=== PATIENT | male | born 1985 ===

== ENCOUNTER 2018-02-11 13:40 | Emergency (ER) | payer OTHER ==
[2018-02-11 14:00] VITALS: BP 154/95
--- NOTE | 2018-02-11 14:32 | UC ---
Hand/Wrist HPI - HPI Summary HPI Summary: hit radial side of left hand on a door this morning while at work---moveing left thumb causing pain - History Of Current Complaint Chief Complaint: UCUpperExtremity Stated Complaint: WRIST INJURY Time Seen by Provider: 02/11/18 14:31 Hx Obtained From: Patient ?: No Onset/Duration: Lasting Hours Pain Intensity: 5 Pain Scale Used: 0-10 Numeric Character Of Pain: Aching, Throbbing Alleviating Factor(s): Nothing Associated Signs And Symptoms: Positive: Negative Related History: Dominant Hand Left - Allergies/Home Medications Allergies/Adverse Reactions: Allergies Allergy/AdvReac Type Severity Reaction Status Date / Time No Known Allergies Allergy Verified 02/11/18 14:00 Home Medications: Home Medications NK [No Home Medications Reported] 02/11/18 [History Confirmed 02/11/18] PMH/Surg Hx/FS Hx/Imm Hx Previously Healthy: Yes - Surgical History Surgical History: None - Family History Known Family History: Positive: None - Social History Occupation: Employed Full-time Lives: With Family Alcohol Use: None Substance Use Type: None Smoking Status (MU): Current Some Day Smoker Type: Cigarettes Amount Used/How Often: 1/2 ppd Review of Systems Constitutional: Negative Skin: Negative Eyes: Negative ENT: Negative Respiratory: Negative Cardiovascular: Negative Gastrointestinal: Negative Genitourinary: Negative Motor: Negative Neurovascular: Negative Musculoskeletal: Arthralgia - radial aspect of left wrist and left thumb tender after pushing left hand into a locked door Neurological: Negative Psychological: Negative Is Patient Immunocompromised?: No All Other Systems Reviewed And Are Negative: Yes Physical Exam Triage Information Reviewed: Yes Appearance: Well-Appearing, No Pain Distress, Well-Nourished Vital Signs: Initial Vital Signs Temp 98 F 02/11/18 13:56 Pulse 85 02/11/18 13:56 Resp 18 02/11/18 13:56 BP 154/95 02/11/18 13:56 Pulse Ox 98 02/11/18 13:56 Vital Signs Reviewed: Yes Eye Exam: Normal Eyes: Positive: Conjunctiva Clear ENT Exam: Normal ENT: Positive: Normal ENT inspection, Hearing grossly normal. Negative: Trismus , Muffled voice, Hoarse voice, Sinus tenderness Dental Exam: Normal Neck exam: Normal Neck: Positive: Supple, Nontender Respiratory Exam: Normal Respiratory: Positive: Chest non-tender, No respiratory distress, No accessory muscle use Cardiovascular Exam: Normal Cardiovascular: Positive: RRR, Pulses Normal, Brisk Capillary Refill Musculoskeletal: Positive: Strength Intact, No Edema, ROM Limited @ - left thumb limited by pain Neurological Exam: Normal Neurological: Positive: Alert, Muscle Tone Normal, Fatigued Psychological Exam: Normal Skin Exam: Normal Diagnostics - Radiology No standard instances Xray Interpretation: No Acute Changes Radiology Interpretation Completed By: ED Physician, Radiologist - Patient Name : ALVARADO WATKINS Medical Record#: [id number] Ordering Physician: Neena Crocker NP Acct.#: [id number] : 1985 Age: 32 Sex: M Location: [facility] Exam Date: 02/11/18 1432 ADM Status: REG ER Order Information: WRIST LEFT 3+ VWS Accession Number: [id number] CPT: 35326 INDICATION: Radial aspect LEFT wrist pain for one week following injury. COMPARISON: No relevant prior exams available on the [facility] PACS for comparison. TECHNIQUE: AP, lateral, and oblique views LEFT wrist. REPORT: Negative for fracture or dislocation. No significant arthropathic change evident. Mild radial aspect soft tissue swelling. IMPRESSION: Mild radial aspect soft tissue swelling. No radiographic evidence for fracture. < Electronically signed by Damian Rios MD in OV> 02/11/181454 Dictated By: Damian Rios MD Dictated Date/Time: 02/11/181454 Transcribed Date/Time: 145 Copy to: CC:Che Ray MD; Neena Crocker SERVICE UNIT OPERATOR; Michel Banks MD Imaging - [facility] Imaging - [facility] [address] [address] ph [phone] ph [phone] ph ([phone]) 1 of 1 Hand/Wrist Course/Dx - Course Course Of Treatment: thumb spica tylenol/ibuprofen for pain follow with ortho prn - Differential Dx/Diagnosis Provider Diagnoses: left wrist sprain, elevated blood pressure without dx of hypertension Discharge - Sign-Out/Discharge Documenting (check all that apply): Discharge/Admit/Transfer - Discharge Plan Condition: Stable Disposition: HOME Patient Education Materials: Ibuprofen (By mouth), Contusion in Adults (ED), Hypertension (ED) Referrals: Michel Banks MD [Primary Care Provider] - 2 Weeks Bailey Monroe MD [Medical Doctor] - 1 Week - Billing Disposition and Condition Condition: STABLE Disposition: Home
--- NOTE | 2018-02-11 14:59 | RAD ---
INDICATION: Radial aspect LEFT wrist pain for one week following injury. COMPARISON: No relevant prior exams available on the [facility] [place] for [place]. TECHNIQUE: AP, lateral, and oblique views LEFT wrist. REPORT: Negative for fracture or dislocation. No significant arthropathic change evident. Mild radial aspect soft tissue swelling. IMPRESSION: Mild radial aspect soft tissue swelling. No radiographic evidence for fracture.
== END 2018-02-11 15:14 | disposition home or self-care (01) ==
LOC: UCEAST 13:40
DX: S63.502A Unspecified sprain of left wrist, initial encounter (principal); W22.8XXA Striking against or struck by other objects, initial encounter; Y93.9 Activity, unspecified; Y92.89 Other specified places as the place of occurrence of the external cause; Y99.0 Civilian activity done for income or pay; R03.0 Elevated blood-pressure reading, without diagnosis of hypertension; Z72.0 Tobacco use
CPT/HCPCS: 99201; G0463

== ENCOUNTER 2018-07-27 11:56 | Emergency (ER) | payer OTHER ==
[2018-07-27 12:11] VITALS: BP 154/84
--- NOTE | 2018-07-27 12:16 | UC ---
FLU HPI - HPI Summary HPI Summary: 3 DAYS OF MALAISE, FEVER TMAX 103, MIRANDA, FATIGUE, NAUSEA. DENIES COUGH, CONGESTION. REQUESTING FLU SWAB. - History of Current Complaint Stated Complaint: FEVER SINUS ISSUE Time Seen by Provider: 07/27/18 12:06 Hx Obtained From: Patient Onset/Duration: Gradual Onset, Lasting Days, Still Present Severity Currently: Moderate Severity Initially: Moderate Pain Intensity: 7 Pain Scale Used: 0-10 Numeric Associated Signs & Symptoms: Positive: Fever, Myalgia, Headache. Negative: Cough, Nasal Congestion - Allergy/Home Medications Allergies/Adverse Reactions: Allergies Allergy/AdvReac Type Severity Reaction Status Date / Time No Known Allergies Allergy Verified 07/27/18 12:12 PMH/Surg Hx/FS Hx/Imm Hx - Additional Past Medical History Additional PMH: ALLERGIES Cardiovascular History: Hypertension - Surgical History Surgical History: None - Family History Known Family History: Positive: None - Social History Alcohol Use: None Substance Use Type: None Smoking Status (MU): Current Some Day Smoker Type: Cigarettes Amount Used/How Often: 1/2 ppd Review of Systems All Other Systems Reviewed And Are Negative: Yes Constitutional: Positive: Fever, Chills, Fatigue ENT: Positive: Negative Respiratory: Positive: Negative Cardiovascular: Positive: Negative Gastrointestinal: Positive: Nausea Musculoskeletal: Positive: Myalgia Neurological: Positive: Headache Physical Exam Triage Information Reviewed: Yes Appearance: Well-Appearing, No Pain Distress, Well-Nourished Vital Signs: Initial Vital Signs Temp 99.6 F 07/27/18 12:09 Pulse 73 07/27/18 12:09 Resp 16 07/27/18 12:09 BP 154/84 07/27/18 12:09 Pulse Ox 97 07/27/18 12:09 Laboratory Tests 07/27/18 12:18 Influenza A (Rapid) Negative Influenza B (Rapid) Negative Vital Signs Reviewed: Yes Eyes: Positive: Conjunctiva Clear ENT: Positive: Hearing grossly normal, Pharynx normal, Other - LEFT TM NORMAL. RIGHT TM ERYTHEMATOUS Neck: Positive: Supple, Nontender, No Lymphadenopathy Respiratory Exam: Normal Cardiovascular Exam: Normal Abdomen Description: Positive: Soft Musculoskeletal: Positive: No Edema Neurological: Positive: Alert Psychological: Positive: Age Appropriate Behavior Skin: Negative: Rashes Flu Course/Dx - Differential Dx/Diagnosis Provider Diagnosis: Acute viral syndrome, Otitis media, right Discharge - Sign-Out/Discharge Documenting (check all that apply): Patient Departure All imaging exams completed and their final reports reviewed: No Studies - Discharge Plan Condition: Stable Disposition: HOME Prescriptions: Amoxicillin PO (*) [Amoxicillin 500 MG CAP*] 1,000 mg PO Q12H #40 cap Ondansetron ODT TAB* [Zofran Odt TAB*] 4 mg PO Q6H PRN #20 tab.odt PRN Reason: Nausea/Vomiting Patient Education Materials: Ear Infection (ED), Viral Syndrome (ED) Forms: *Work Release Referrals: Michel Banks MD [Primary Care Provider] - If Needed Additional Instructions: FLU SWAB NEGATIVE. YOUR SYMPTOMS ARE STILL LIKELY VIRALLY MEDIATED AND SHOULD RESOLVE ON THEIR OWN WITH TIME, HOWEVER GIVEN YOUR MILD EAR INFECTION WILL GO AHEAD AND GIVE ANTIBIOTICS. IF YOU ARE NOT FEELING BETTER IN A FEW DAYS START THE MEDICINE. IF YOU START IT TAKE IT FOR THE FULL COURSE. REST, HYDRATE, OTC MEDS NEEDED. SEEK FOLLOW-UP IF YOU ARE NOT IMPROVING OVER THE NEXT 1-2 WEEKS. - Billing Disposition and Condition Condition: STABLE Disposition: Home
[2018-07-27] MEDS ORDERED: Ondansetron ODT TAB* 4 MG PO ONE (12:44)
== END 2018-07-27 12:58 | disposition home or self-care (01) ==
LOC: UCEAST 11:56
DX: B34.9 Viral infection, unspecified (principal); H66.91 Otitis media, unspecified, right ear; Z72.0 Tobacco use
CPT/HCPCS: 99212; A9270-GY; G0463

== ENCOUNTER 2018-07-31 11:27 | Emergency (ER) | payer OTHER ==
[2018-07-31 11:41] VITALS: BP 146/88
--- NOTE | 2018-07-31 12:44 | UC ---
Skin Complaint HPI - HPI Summary HPI Summary: 32 y/o female presents to the urgent care c/o a painful vesicular rash in the left side of his abdomen radiating to the back like a band since 2017. Symptoms started w/ a flu-like syndrome last Wednesday07/24/2018. He then was seen here at the urgent care on Wednesday07/27/2018 and influenza A&B were negative, and Dx w/ a Viral syndrome, he has been taking Excedrin PO to alleviate symptoms. Pain is 4/10 at touch. Pt states hx of chicken pox at age 7. Pt had fever and body aches at the beginning of symptoms. Pt denies SOB, chest pain, abdominal pain, N/v/D. - History of Current Complaint Chief Complaint: UCSkin Time Seen by Provider: 07/31/18 12:23 Stated Complaint: SKIN COMPLAINT Hx Obtained From: Patient Onset/Duration: Gradual Onset, Lasting Days - 4 days, Still Present, Worse Since - today Skin Exposure Onset/Duration: Days Ago - 4 days Timing: Constant Onset Severity: Mild Current Severity: Moderate Pain Intensity: 2 Pain Scale Used: 0-10 Numeric Location: Discrete - left side of abdomen radiating to his back like a band Character: Pruritus, Pain, Redness Aggravating Factor(s): Touch Alleviating Factor(s): OTC Meds Associated Signs & Symptoms: Positive: Rash - w/ vesicles in mid left side of abdomen, Tenderness. Negative: Drainage Related History: Other: - chicken pox at age 7 - Allergy/Home Medications Allergies/Adverse Reactions: Allergies Allergy/AdvReac Type Severity Reaction Status Date / Time No Known Allergies Allergy Verified 07/31/18 11:41 Home Medications: Home Medications Amoxicillin PO (*) [Amoxicillin 500 MG CAP*] 500 mg PO Q12H 07/31/18 [History Confirmed 07/31/18] Review of Systems All Other Systems Reviewed And Are Negative: Yes Constitutional: Positive: Fever, Chills, Fatigue, Other - body aches Skin: Positive: Rash - vesicular and papular on the left side of mid abdomen radiating to the back Eyes: Positive: Negative ENT: Positive: Nasal Discharge, Sinus Congestion Respiratory: Positive: Negative Cardiovascular: Positive: Negative Gastrointestinal: Positive: Negative Genitourinary: Positive: Negative Motor: Positive: Negative Neurovascular: Positive: Negative Musculoskeletal: Positive: Negative Neurological: Positive: Negative Psychological: Positive: Negative Is Patient Immunocompromised?: No PMH/Surg Hx/FS Hx/Imm Hx Previously Healthy: Yes - Pt denies PMHX - Surgical History Surgical History: None - Family History Known Family History: Positive: Unknown - Pt is adopted - Social History Occupation: Employed Full-time Lives: With Family Alcohol Use: Rare Substance Use Type: None Smoking Status (MU): Current Every Day Smoker Type: Cigarettes Amount Used/How Often: 1/2 ppd - Immunization History Vaccination Up to Date: Yes Physical Exam - Summary Physical Exam Summary: Vital Signs Reviewed: Yes General: well developed, well nourished male sitting in the examining table w/o any apparent distress. Eyes: Positive: Conjunctiva Clear - PERRLA, EOMI ENT: Positive: Normal ENT inspection, Hearing grossly normal, Pharynx normal, TMs normal Neck: Positive: Supple, Nontender, No Lymphadenopathy Respiratory: Positive: Chest nontender, Lungs clear, Normal breath sounds Cardiovascular: Positive: RRR, No Murmur, Pulses Normal Abdomen Description: Positive: Nontender, No Organomegaly, Soft. Negative: CVA Tenderness (R), CVA Tenderness (L) Bowel Sounds: Positive: Present Musculoskeletal: Positive: Strength Intact, ROM Intact, No Edema Neurological Exam: Normal Psychological Exam: Normal Skin: Positive: rashes -Positive mild erythematous maculopapular eruption, some papule with clear vesicles. located in the mid left side radiating to the back in a dermatomal distribution. no swelling Triage Information Reviewed: Yes Vital Signs: Initial Vital Signs Temp 96.8 F 07/31/18 11:35 Pulse 86 07/31/18 11:35 Resp 18 07/31/18 11:35 BP 146/88 07/31/18 11:35 Pulse Ox 100 07/31/18 11:35 Course/Dx - Course Course Of Treatment: 32 y/o female presents to the urgent care c/o a painful vesicular rash in the left side of his abdomen radiating to the back like a band since 07/28/2018. Symptoms started w/ a flu-like syndrome last Wednesday07/24/2018. He then was seen here at the urgent care on Wednesday and influenza A&B were negative, and Dx w/ a Viral syndrome, he has been taking Excedrin PO to alleviate symptoms. Pain is 4/10 at touch. Pt states hx of chicken pox at age 7. Pt had fever and body aches at the beginning of symptoms. Pt denies SOB, chest pain, abdominal pain, N/v/D. Hx obtained. Pt w/ herpes Zoster on examination. Pt Rx Valtrex PO and Ibuprofen PO as directed below to alleviate symptoms. Pt strongly advised if not improvement of symptoms to return to the urgent care or f/u w/ his PCP for further management. Also advised to avoid being exposed to women. D/C instructions explained. pt understood and agreed w/ plan of care. Pt left clinic hemodynamically stable and ambulating. - Differential Diagnoses - Skin Complaint Differential Diagnoses: Abscess, Cellulitis, Contact Dermatitis, Impetigo, MRSA , Poison [place], Poison [place], Varicella Zoster - Diagnoses Provider Diagnosis: Herpes zoster, Elevated blood pressure reading without diagnosis of hypertension Discharge - Sign-Out/Discharge Documenting (check all that apply): Patient Departure - D/c home All imaging exams completed and their final reports reviewed: No Studies - Discharge Plan Condition: Stable Disposition: HOME Prescriptions: Ibuprofen TAB* [Motrin TAB* 800 MG] 800 mg PO Q6H PRN #30 tab PRN Reason: Pain ValACYclovir (*) [Valtrex 1 GM(*)] 1 gm PO TID #21 tab Patient Education Materials: Shingles (ED), Low-Sodium Diet (ED) Referrals: Michel Banks MD [Primary Care Provider] - 3 Days Additional Instructions: 1-Please take full course of antiviral Valtrex as directed to alleviate symptoms 2- Take Ibuprofen PO q6-8hrs after meals to alleviate pain. Please avoid contact w/ women 3-Please F/u with your PCP in 3 days if not improvement of symptoms. for further evaluation and treatment. 4-Your BP is elevated today. please decrease salt in your diet, monitor BP and if it continues to be elevated please f/u with your PCP for further management - Billing Disposition and Condition Condition: STABLE Disposition: Home
== END 2018-07-31 13:15 | disposition home or self-care (01) ==
LOC: UCEAST 11:27
DX: B02.9 Zoster without complications (principal); R03.0 Elevated blood-pressure reading, without diagnosis of hypertension; F17.210 Nicotine dependence, cigarettes, uncomplicated
CPT/HCPCS: 99212; G0463

== ENCOUNTER 2018-08-05 08:16 | Emergency (ER) | payer OTHER ==
[2018-08-05 08:40] VITALS: BP 163/88
--- NOTE | 2018-08-05 08:47 | UC ---
General HPI - HPI Summary HPI Summary: 32 yo gentleman was dx with shingles on Wednesday07/29/18. Pt has been out of work since 07/25, would like to go back to work. His work is requesting a return to work note. Still has rash L lat flank. Mostly scabbed over. No current fever. No sores / rash / lesions elsewhere. - History of Current Complaint Stated Complaint: FOLLOW UP Hx Obtained From: Patient Pain Intensity: 3 - Allergy/Home Medications Allergies/Adverse Reactions: Allergies Allergy/AdvReac Type Severity Reaction Status Date / Time No Known Allergies Allergy Verified 08/05/18 08:28 PMH/Surg Hx/FS Hx/Imm Hx Previously Healthy: Yes - Surgical History Surgical History: None - Family History Known Family History: Positive: None, Unknown - Pt is adopted - Social History Alcohol Use: Rare Substance Use Type: None Smoking Status (MU): Light Every Day Tobacco Smoker Type: Cigarettes Amount Used/How Often: 1/2 ppd - Immunization History Vaccination Up to Date: Yes Review of Systems All Other Systems Reviewed And Are Negative: Yes Constitutional: Positive: Negative Skin: Positive: Other - see hpi Eyes: Positive: Negative ENT: Positive: Negative Respiratory: Positive: Negative Cardiovascular: Positive: Negative Gastrointestinal: Positive: Negative Genitourinary: Positive: Negative Motor: Positive: Negative Neurovascular: Positive: Negative Musculoskeletal: Positive: Negative Neurological: Positive: Negative Psychological: Positive: Negative Is Patient Immunocompromised?: No Physical Exam Triage Information Reviewed: Yes Appearance: Well-Appearing, Well-Nourished Vital Signs: Initial Vital Signs Temp 98.8 F 08/05/18 08:30 Pulse 96 08/05/18 08:30 Resp 16 08/05/18 08:30 BP 163/88 08/05/18 08:30 Pulse Ox 98 08/05/18 08:30 Vital Signs Reviewed: Yes Eye Exam: Normal ENT Exam: Normal - no sores appreciated or reported Neck exam: Normal Neck: Positive: Supple, Nontender Respiratory Exam: Normal Respiratory: Positive: Chest non-tender, Lungs clear, Normal breath sounds, No respiratory distress, No accessory muscle use Cardiovascular Exam: Normal Cardiovascular: Positive: RRR, No Murmur, Pulses Normal, Brisk Capillary Refill Abdominal Exam: Normal Abdomen Description: Positive: Nontender Musculoskeletal Exam: Normal - grossly nonfocal Musculoskeletal: Positive: Strength Intact, ROM Intact Neurological Exam: Normal Psychological Exam: Normal - conversing easily Skin Exam: Normal - normal except dried vesicular lesions L flank. No iris cellulitis, not weeping. Minimally tender. Course/Dx - Course Course Of Treatment: Reviewed coa / tx. Questions answered as posed. Return to work on Wednesday. - Diagnoses Provider Diagnosis: Shingles Discharge - Sign-Out/Discharge Documenting (check all that apply): Patient Departure All imaging exams completed and their final reports reviewed: No Studies - Discharge Plan Condition: Stable Disposition: HOME Patient Education Materials: [place] (ED) Forms: *Work Release Referrals: Michel Banks MD [Primary Care Provider] - - Billing Disposition and Condition Condition: STABLE Disposition: Home
== END 2018-08-05 09:20 | disposition home or self-care (01) ==
LOC: UCEAST 08:16
DX: B02.9 Zoster without complications (principal); F17.210 Nicotine dependence, cigarettes, uncomplicated
CPT/HCPCS: 99211; G0463